=== PATIENT | male | born 1940 | race Caucasian/White ===

== ENCOUNTER 2017-07-20 15:28 | Emergency (ER) | payer MEDICARE, OTHER ==
--- NOTE | 2017-07-20 16:02 | ER Document Report ---
ED Medical Screen (RME) - General Chief Complaint: Chest Pain Stated Complaint: CHEST PAIN Time Seen by Provider: 07/20/17 16:01 Notes: Patient states she has had chest pain on the left for about 3 days. States she has not had any other real significant symptoms. He does take an aspirin per day. Denies any type of cardiac problems in the past. He has not had any have a previous cardiac evaluation. EKG shows a left bundle branch block. An old EKG cannot be located. - Related Data Allergies/Adverse Reactions: No Known Allergies Allergy (Verified 07/20/17 15:29) Past Medical History - Social History Chew tobacco use (# tins/day): No Frequency of alcohol use: Occasional Drug Abuse: None - Past Medical History Cardiac Medical History: Reports: Hx Hypercholesterolemia, Hx Hypertension Renal/ Medical History: Reports: Hx Kidney Stones. Denies: Hx Peritoneal Dialysis Past Surgical History: Reports: Hx Tonsillectomy, Hx Vascular Surgery - Right Carotid Artery - Immunizations Hx Diphtheria, Pertussis, Tetanus Vaccination: Yes Physical Exam - Vital signs Vitals: Temp Pulse Resp BP Pulse Ox 97.8 F 54 L 16 152/84 H 98 07/20/17 15:42 07/20/17 15:42 07/20/17 15:42 07/20/17 15:42 07/20/17 15:42 Course - Vital Signs Vital signs: Temp Pulse Resp BP Pulse Ox 97.8 F 54 L 16 152/84 H 98 07/20/17 15:42 07/20/17 15:42 07/20/17 15:42 07/20/17 15:42 07/20/17 15:42 Doctor's Discharge - Discharge Referrals: KAREEM CONNOR MD [Primary Care Provider] - Follow up as needed
[2017-07-20 16:55] LABS: ABSOLUTE EOSINOPHILS # (AUTO) 0.2 10^3/uL (0.0-0.6); ABSOLUTE LYMPHOCYTES (AUTO) 1.6 10^3/uL (0.5-4.7); ABSOLUTE MONOCYTES (AUTO) 0.5 10^3/uL (0.1-1.4); ABSOLUTE NEUT (AUTO) 3.5 10^3/uL (1.7-8.2); BASOPHILS % (AUTO) 0.6 % (0-2); EOSINOPHILS % (AUTO) 3.9 % (0-6); HEMATOCRIT 43.1 % (37.9-51.0); LYMPHOCYTES % (AUTO) 27.2 % (13-45); MEAN CORPUSCULAR HEMOGLOBIN 31.4 pg (27.0-33.4); MEAN CORPUSCULAR HGB CONC 34.8 g/dL (32.0-36.0); MEAN CORPUSCULAR VOLUME 90 fl (80-97); MONOCYTES % (AUTO) 9.1 % (3-13); PLATELET COUNT 221 10^3/uL (150-450); RED BLOOD COUNT 4.77 10^6/uL (4.35-5.55); RED CELL DISTRIBUTION WIDTH 13.2 % (11.5-14.0); SEGMENTED NEUTROPHILS % (AUTO) 59.2 % (42-78); TOTAL CELLS COUNTED % (AUTO) 100 %
[2017-07-20 17:04] LABS: ALANINE AMINOTRANSFERASE 33 U/L (21-72); ALBUMIN 4.1 g/dL (3.5-5.0); ALKALINE PHOSPHATASE 79 U/L (38-126); ANION GAP 9 (5-19); ASPARTATE AMINO TRANSFERASE 23 U/L (17-59); BILIRUBIN,DIRECT 0.2 mg/dL (0.0-0.4); BILIRUBIN,TOTAL 0.8 mg/dL (0.2-1.3); BLOOD UREA NITROGEN 23 mg/dL (7-20); CALCIUM 9.8 mg/dL (8.4-10.2); CARBON DIOXIDE 29 mmol/L (22-30); CHLORIDE 105 mmol/L (98-107); GLUCOSE 91 mg/dL (75-110); POTASSIUM 4.6 mmol/L (3.6-5.0); SODIUM 142.5 mmol/L (137-145); TOTAL PROTEIN 6.4 g/dL (6.3-8.2)
--- NOTE | 2017-07-20 17:55 | ER Document Report ---
ED Cardiac - General Chief Complaint: Chest Pain Stated Complaint: CHEST PAIN Time Seen by Provider: 07/20/17 16:01 Mode of Arrival: Ambulatory Notes: Patient states that he has had chest pain for about 3 days. Hurts when he takes a big deep breath and when he moves. Hurts on the left sternal border. Denies any shortness of breath. No previous history of blood clots or DVTs. No previous history of heart problems. Did have carotid endarterectomy approximately 4 years ago. Movement makes it worse. Deep breaths make it worse. Sharp. Only lasts for a few seconds and goes away. Patient was concerned that it could be his heart so decided to come in. Has any nausea, vomiting. No other symptoms. Denies abdominal pain. - HPI Patient complains to provider of: Chest pain - Related Data Allergies/Adverse Reactions: No Known Allergies Allergy (Verified 07/20/17 15:29) Past Medical History - Social History Smoking Status: Never Smoker Chew tobacco use (# tins/day): No Frequency of alcohol use: Occasional Drug Abuse: None Lives with: Family Family History: Reviewed & Not Pertinent Patient has suicidal ideation: No Patient has homicidal ideation: No - Past Medical History Cardiac Medical History: Reports: Hx Hypercholesterolemia, Hx Hypertension Renal/ Medical History: Reports: Hx Kidney Stones. Denies: Hx Peritoneal Dialysis Past Surgical History: Reports: Hx Tonsillectomy, Hx Vascular Surgery - Right Carotid Artery - Immunizations Hx Diphtheria, Pertussis, Tetanus Vaccination: Yes Review of Systems - Review of Systems Constitutional: No symptoms reported EENT: No symptoms reported Cardiovascular: No symptoms reported, See HPI, Chest pain Respiratory: No symptoms reported Gastrointestinal: No symptoms reported Genitourinary: No symptoms reported Male Genitourinary: No symptoms reported Musculoskeletal: No symptoms reported Skin: No symptoms reported Hematologic/Lymphatic: No symptoms reported Neurological/Psychological: No symptoms reported Physical Exam - Vital signs Vitals: Temp Pulse Resp BP Pulse Ox 97.8 F 54 L 16 152/84 H 98 07/20/17 15:42 07/20/17 15:42 07/20/17 15:42 07/20/17 15:42 07/20/17 15:42 Interpretation: Normal - General General appearance: Appears well, Alert - HEENT Head: Normocephalic, Atraumatic Eyes: Normal Pupils: PERRL - Respiratory Respiratory status: No respiratory distress Chest status: Nontender Breath sounds: Normal Chest palpation: Normal - Cardiovascular Rhythm: Regular Heart sounds: Normal auscultation Murmur: No Notes: tenderness to palpation of the left costochondral margin at the left sternal border - Abdominal Inspection: Normal Distension: No distension Bowel sounds: Normal Tenderness: Nontender Organomegaly: No organomegaly - Back Back: Normal, Nontender - Extremities General upper extremity: Normal inspection, Nontender, Normal color, Normal ROM , Normal temperature General lower extremity: Normal inspection, Nontender, Normal color, Normal ROM , Normal temperature, Normal weight bearing. No: Edema, Eugene's sign - Neurological Neuro grossly intact: Yes Cognition: Normal Orientation: AAOx4 Garrett Coma Scale Eye Opening: Spontaneous Garrett Coma Scale Verbal: Oriented Marguerite Coma Scale Motor: Obeys Commands Garrett Coma Scale Total: 15 Speech: Normal Motor strength normal: LUE, RUE, LLE, RLE Sensory: Normal - Psychological Associated symptoms: Normal affect, Normal mood - Skin Skin Temperature: Warm Skin Moisture: Dry Skin Color: Normal Course - Re-evaluation Re-evalutation: 07/20/17 20:20 Patient with normal labs. Normal chest x-ray. Reproducible chest wall tenderness. Patient does have a left bundle branch block and unable to find old EKG. With that being said I told patient he needs to be admitted to the hospital for further evaluation. Patient states that he now remembers why he hurts. States that he played pickle ball for the last 3 days and thinks that maybe he strained a muscle in his chest. I advised him that there is no weighted determine 100% whether or not he is having a myocardial issues without doing a stress test especially in light of this abnormal EKG. States that he thinks that his regular doctor has an old EKG. He wants to follow-up with his regular doctor. I am asking patient to sign out AGAINST MEDICAL ADVICE at this time. Patient is of clear mind with a normal mental status exam. Patient also realizes that if symptoms get worse he should come back. Will DC at this time. Advised him to take some anti-inflammatories over the next couple of days to see if this would help his symptoms and to follow-up with his doctor tomorrow. - Vital Signs Vital signs: Temp Pulse Resp BP Pulse Ox 97.8 F 54 L 16 152/84 H 98 07/20/17 15:42 07/20/17 15:42 07/20/17 15:42 07/20/17 15:42 07/20/17 15:42 - Laboratory Result Diagrams: 07/20/17 16:31 07/20/17 16:31 Laboratory results interpreted by me: 07/20/17 07/20/17 16:31 18:58 BUN 23 H Urine Ascorbic Acid 40 H - EKG Interpretation by Me EKG shows normal: ST-T Waves [place]/QRS: Left axis deviation, LBBB Discharge - Discharge Clinical Impression: Chest pain Qualifiers: Chest pain type: unspecified Qualified Code(s): R07.9 - Chest pain, unspecified Disposition: HOME, SELF-CARE Instructions: Chest Pain of Unclear Cause ([facility]) Referrals: KAREEM CONNOR MD [Primary Care Provider] - 07/21/17
--- NOTE | 2017-07-20 18:43 | RADIOLOGY REPORT (SQ) ---
EXAM DESCRIPTION: CHEST PA/LAT COMPLETED DATE/TIME: 07/20/2017 6:22 pm REASON FOR STUDY: chest pain COMPARISON: None. EXAM PARAMETERS: NUMBER OF VIEWS: two views TECHNIQUE: Digital Frontal and Lateral radiographic views of the chest acquired. RADIATION DOSE: NA LIMITATIONS: none FINDINGS: LUNGS AND PLEURA: There is mild hyperexpansion of the lungs. There is no infiltrate or ef fusion. No mass is seen. MEDIASTINUM AND HILAR STRUCTURES: No masses or contour abnormalities. HEART AND VASCULAR STRUCTURES: Heart normal size. No evidence for failure. BONES: No acute findings. HARDWARE: None in the chest. OTHER: No other significant finding. IMPRESSION: Chronic lung changes with no acute cardiopulmonary disease. TECHNICAL DOCUMENTATION: JOB ID: [id number] [employer]- All Rights Reserved Reading location - IP/workstation name: [email or web address]
[2017-07-20 19:29] LABS: APPEARANCE,URINE CLEAR; BILIRUBIN,URINE NEGATIVE (NEGATIVE); COLOR,URINE YELLOW; GLUCOSE, URINE NEGATIVE (NEGATIVE); KETONES,URINE NEGATIVE (NEGATIVE); LEUKOCYTE ESTERASE,URINE NEGATIVE (NEGATIVE); NITRITE,URINE NEGATIVE (NEGATIVE); PROTEIN,URINE NEGATIVE (NEGATIVE); URINE SPECIFIC GRAVITY 1.017; UROBILINOGEN,URINE NEGATIVE mg/dL (<2.0)
[2017-07-20 20:36] VITALS: BP 162/62
--- NOTE | 2017-07-20 22:12 | EKG REPORT ---
SEVERITY:- ABNORMAL ECG - SINUS RHYTHM LEFT BUNDLE BRANCH BLOCK : Confirmed by: Conrad Pendleton 20-Jul-2017 22:11:08
== END 2017-07-20 20:40 | disposition left against medical advice (07) ==
LOC: ER 15:28
DX: R07.9 Chest pain, unspecified (principal)
CPT/HCPCS: 36415; 71046; 80053; 81001; 84484; 85025; 93005; 93010; 99285

== ENCOUNTER 2018-11-07 15:00 | Emergency (ER) | payer MEDICARE ==
[2018-11-07] MEDS ORDERED: ASPIRIN 81 MG TABLET, CHEWABLE PO ONE (15:28)
--- NOTE | 2018-11-07 15:29 | ER Document Report ---
ED Medical Screen (RME) - General Chief Complaint: Shortness Of Breath Stated Complaint: SHORTNESS OF BREATH Time Seen by Provider: 11/07/18 15:27 Primary Care Provider: KAREEM CONNOR MD [Primary Care Provider] - Follow up as needed Mode of Arrival: Ambulatory Information source: Patient Notes: Patient presents complaining of chest pain with shortness of breath for the past week. Patient states that he has had exertional dyspnea that has worsened recently which prompted his visit. Patient states he had a cough for several weeks although the cough over the past few days to seem to have resolved. Patient does have a history of hypertension and dyslipidemia. I have greeted and performed a rapid initial assessment of this patient. A comprehensive ED assessment and evaluation of the patient, analysis of test results and completion of the medical decision making process will be conducted by additional ED providers. TRAVEL OUTSIDE OF THE [place] IN LAST 30 DAYS: No - Related Data Allergies/Adverse Reactions: No Known Allergies Allergy (Verified 11/07/18 15:02) Past Medical History - Past Medical History Cardiac Medical History: Reports: Hx Hypercholesterolemia, Hx Hypertension Renal/ Medical History: Reports: Hx Kidney Stones. Denies: Hx Peritoneal Dialysis Past Surgical History: Reports: Hx Tonsillectomy, Hx Vascular Surgery - Right Carotid Artery - Immunizations Hx Diphtheria, Pertussis, Tetanus Vaccination: Yes Physical Exam - Vital signs Vitals: Temp Pulse Resp BP Pulse Ox 98 F 67 16 146/56 H 96 11/07/18 15:14 11/07/18 15:14 11/07/18 15:14 11/07/18 15:14 11/07/18 15:14 - Respiratory Respiratory status: No respiratory distress Chest status: Nontender Breath sounds: Normal Chest palpation: Normal Course - Vital Signs Vital signs: Temp Pulse Resp BP Pulse Ox 98 F 67 16 146/56 H 96 11/07/18 15:14 11/07/18 15:14 11/07/18 15:14 11/07/18 15:14 11/07/18 15:14 Doctor's Discharge - Discharge Referrals: KAREEM CONNOR MD [Primary Care Provider] - Follow up as needed
--- NOTE | 2018-11-07 15:34 | RADIOLOGY REPORT (SQ) ---
EXAM DESCRIPTION: CHEST 2 VIEWS COMPLETED DATE/TIME: 11/07/2018 3:19 pm REASON FOR STUDY: CP COMPARISON: 09/11/2018 TECHNIQUE: Frontal and lateral radiographic views of the chest acquired. NUMBER OF VIEWS: Two view. LIMITATIONS: None. FINDINGS: LUNGS AND PLEURA: No pneumothorax. Similar postsurgical changes in the right lung base. No consolidation or pleural effusion. MEDIASTINUM AND HILAR STRUCTURES: Stable. HEART AND VASCULAR STRUCTURES: Stable. BONES: No acute findings. HARDWARE: None in the chest. OTHER: No other significant finding. IMPRESSION: NO ACUTE FINDINGS. TECHNICAL DOCUMENTATION: JOB ID: [id number] [place]-72 2010 [employer]- All Rights Reserved Reading location - IP/workstation name: [email or web address]
[2018-11-07 15:54] LABS: ABSOLUTE EOSINOPHILS # (AUTO) 0.2 10^3/uL (0.0-0.6); ABSOLUTE LYMPHOCYTES (AUTO) 1.5 10^3/uL (0.5-4.7); ABSOLUTE MONOCYTES (AUTO) 0.6 10^3/uL (0.1-1.4); ABSOLUTE NEUT (AUTO) 4.1 10^3/uL (1.7-8.2); BASOPHILS % (AUTO) 0.6 % (0-2); EOSINOPHILS % (AUTO) 3.3 % (0-6); MEAN CORPUSCULAR HEMOGLOBIN 30.7 pg (27.0-33.4); MEAN CORPUSCULAR HGB CONC 34.2 g/dL (32.0-36.0); MEAN CORPUSCULAR VOLUME 90 fl (80-97); MONOCYTES % (AUTO) 8.9 % (3-13); PLATELET COUNT 213 10^3/uL (150-450); RED BLOOD COUNT 4.56 10^6/uL (4.35-5.55); RED CELL DISTRIBUTION WIDTH 13.8 % (11.5-14.0); SEGMENTED NEUTROPHILS % (AUTO) 64.2 % (42-78); TOTAL CELLS COUNTED % (AUTO) 100 %; WHITE BLOOD COUNT 6.4 10^3/uL (4.0-10.5)
[2018-11-07 15:57] LABS: INTERNATIONAL RATION (INR) 1.01; PROTHROMBIN TIME 13.4 SEC (11.4-15.4)
[2018-11-07 16:12] LABS: ALANINE AMINOTRANSFERASE 27 U/L (21-72); ALBUMIN 4.1 g/dL (3.5-5.0); ALKALINE PHOSPHATASE 83 U/L (38-126); ANION GAP 6 (5-19); ASPARTATE AMINO TRANSFERASE 27 U/L (17-59); BILIRUBIN,DIRECT 0.2 mg/dL (0.0-0.4); BILIRUBIN,TOTAL 1.1 mg/dL (0.2-1.3); BLOOD UREA NITROGEN 23 mg/dL (7-20); CALCIUM 9.6 mg/dL (8.4-10.2); CARBON DIOXIDE 32 mmol/L (22-30); CHLORIDE 104 mmol/L (98-107); CREATINE KINASE 104 U/L (55-170); GLUCOSE 89 mg/dL (75-110); POTASSIUM 4.2 mmol/L (3.6-5.0); SODIUM 142.4 mmol/L (137-145); TOTAL PROTEIN 6.3 g/dL (6.3-8.2)
[2018-11-07 16:24] LABS: CREATINE KINASE MB 2.3 ng/mL (<4.55); TROPONIN I 0.033 ng/mL
--- NOTE | 2018-11-07 18:34 | ER Document Report ---
ED General - General Chief Complaint: Shortness Of Breath Stated Complaint: SHORTNESS OF BREATH Time Seen by Provider: 11/07/18 15:27 Primary Care Provider: KAREEM CONNOR MD [Primary Care Provider] - Follow up as needed Mode of Arrival: Ambulatory Information source: Patient Notes: Patient is a 77 year old male presenting with complaints of left sided chest pa in and shortness of breath with exertion. Patient reports this has been going on for several months with worsening over the last few days. Patient reports that the chest pain starts at the onset of the SOB and feels like a sharp and squeezing pain. Patient states he was seen by a medical technologist microbiology at [facility] but cannot remember his name about 6 months ago. He states that he has a RBBB and a LBBB and they discussed eventually needing a pacemaker. Patient denies any nausea or radiation of the pain. His last episode of chest pain was this morning and he is symptom free at this time. TRAVEL OUTSIDE OF THE [place] IN LAST 30 DAYS: No - Related Data Allergies/Adverse Reactions: No Known Allergies Allergy (Verified 11/07/18 15:02) Past Medical History - General Information source: Patient - Social History Smoking Status: Never Smoker Chew tobacco use (# tins/day): No Frequency of alcohol use: None Drug Abuse: None Family History: Reviewed & Not Pertinent Patient has suicidal ideation: No Patient has homicidal ideation: No - Past Medical History Cardiac Medical History: Reports: Hx Hypercholesterolemia, Hx Hypertension Renal/ Medical History: Reports: Hx Kidney Stones. Denies: Hx Peritoneal Dialysis Past Surgical History: Reports: Hx Tonsillectomy, Hx Vascular Surgery - Right Carotid Artery - Immunizations Hx Diphtheria, Pertussis, Tetanus Vaccination: Yes Review of Systems - Review of Systems Constitutional: No symptoms reported EENT: No symptoms reported Cardiovascular: Chest pain, Dyspnea Respiratory: Short of breath Gastrointestinal: No symptoms reported Genitourinary: No symptoms reported Male Genitourinary: No symptoms reported Musculoskeletal: No symptoms reported Skin: No symptoms reported Hematologic/Lymphatic: No symptoms reported Neurological/Psychological: No symptoms reported Physical Exam - Vital signs Vitals: Temp Pulse Resp BP Pulse Ox 98 F 67 16 146/56 H 96 11/07/18 15:14 11/07/18 15:14 11/07/18 15:14 11/07/18 15:14 11/07/18 15:14 - Notes Notes: PHYSICAL EXAMINATION: GENERAL: Well-appearing, well-nourished and in no acute distress. HEAD: Atraumatic, normocephalic. EYES: Pupils equal round and reactive to light, extraocular movements intact, sclera anicteric, conjunctiva are normal. ENT: Nares patent, oropharynx clear without exudates. Moist mucous membranes. NECK: Normal range of motion, supple without lymphadenopathy LUNGS: Breath sounds clear to auscultation bilaterally and equal. No wheezes rales or rhonchi. HEART: Regular rate and rhythm without murmurs ABDOMEN: Soft, nontender, nondistended abdomen. No guarding, no rebound. No masses appreciated. Musculoskeletal: Normal range of motion, no pitting or edema. No cyanosis. NEUROLOGICAL: Cranial nerves grossly intact. Normal speech, normal gait. Normal sensory, motor exams PSYCH: Normal mood, normal affect. SKIN: Warm, Dry, normal turgor, no rashes or lesions noted. Course - Re-evaluation Re-evalutation: Patient appears well, EKG unchanged from previous on file. Chest xray unremarkable. Consulted with Dr. Bowman, cardiology regarding this patient. His recommendation is to have patient follow-up with his primary care provider if CTA is negative. Currently awaiting second troponin. First trop was 0.033. All other labs unremarkable. Called and spoke with Dr. Pelayo again regarding patient's troponin of 0.037 And results of CTA which was negative. He is okay with patient following up outpatient with primary care as well as his medical technologist microbiology with [facility]. He did recommend patient starting on amlodipine, I will place him on a low-dose of 2.5 mg daily. All of this was discussed with patient and family member and they are in agreeance with plan. ED return precautions discussed. - Vital Signs Vital signs: Temp Pulse Resp BP Pulse Ox 98.7 F 67 16 118/68 98 11/07/18 20:00 11/07/18 15:14 11/07/18 20:00 11/07/18 20:00 11/07/18 20:00 - Laboratory Result Diagrams: 11/07/18 15:38 11/07/18 15:38 Laboratory results interpreted by me: 11/07/18 11/07/18 15:38 15:38 Carbon Dioxide 32 H BUN 23 H NT-Pro-B Natriuret Pep 1180 H - EKG Interpretation by Me EKG shows normal: Sinus rhythm Rate: Normal Rhythm: NSR [place]/QRS: RBBB When compared to previous EKG there are: No significant change Discharge - Discharge Clinical Impression: Shortness of breath on exertion, Chest pain Condition: Stable Disposition: HOME, SELF-CARE Additional Instructions: You were seen today for chest pain and shortness of breath on exertion. The exact cause of your pain is unclear. However, based on your cardiac enzyme testing, chest x-ray, and EKG it does not appear that it is from an immediately life-threatening cause at this time. Although your testing here is normal is critical that you follow-up with your primary care physician for continued e valuation of this chest pain and possible stress testing. I recommended you see your physician within the next 24-48 hours to be evaluated for consideration of a stress test. Please return to emergency department immediately if you have worsening of your chest pain, shortness of breath, vomiting, become unable to exert yourself due to pain or difficulty breathing, you pass out, or have any pain that radiates into your arms, jaw, or back. Please also return if you have any additional symptoms that are concerning to you. Please call Dr. Connor first thing in the morning so that he can get you back in touch with your medical technologist microbiology. This is very important. I have enclosed a copy of all of your lab work from today as well as a copy of your CT report. Please return to the emergency department for any new or worsening symptoms to include difficulty breathing, shortness of breath or worsening chest pain. Prescriptions: RX: Amlodipine Besylate [Norvasc 2.5 mg Tablet] 2.5 mg PO DAILY #30 tablet Referrals: KAREEM CONNOR MD [Primary Care Provider] - Follow up as needed
--- NOTE | 2018-11-07 19:40 | RADIOLOGY REPORT (SQ) ---
EXAM DESCRIPTION: CTA CHEST COMPLETED DATE/TIME: 11/07/2018 7:23 pm REASON FOR STUDY: shortness of breath, chest pain COMPARISON: None. TECHNIQUE: CT scan of the chest performed using helical scanning technique with dynamic intravenous contrast injection. Images reviewed with lung, soft tissue and bone windows. Reconstructed coronal and sagittal MPR images reviewed. Additional 3 dimensional post-processing performed to develop Maximal Intensity Projection images (LA P). All images stored on PACS. All CT scanners at this facility use dose modulation, iterative reconstruction, and/or weight based d osing when appropriate to reduce radiation dose to as low as reasonably achievable (ALARA). [facility]: Dose Right [facility]: CareDose [facility]: Dose Right [facility]: Teradose 4D [facility]: Oxane Materials CONTRAST TYPE AND DOSE: contrast/concentration: Isovue 350.00 mg/ml; Total Contrast Delivered: 74.0 ml; Total Saline Delivered: 80.0 ml Contrast bolus optimized for the pulmonary arteries. Not diagnostic for the aorta. RENAL FUNCTION: BUN 23 creatinine 0.83 RADIATION DOSE: CT Rad equipment meets quality standard of care and radiation dose reduction techniq ues were employed. CTDIvol: 14.3 - 39.7 mGy. DLP: 597 mGy-cm. . LIMITATIONS: None. FINDINGS: LUNGS AND PLEURA: There is a stellate area in the right upper lobe seen best on image 40. There is no identifiable central mass. There is mild pleural/ parenchymal scarring in the right low er lobe. There is radiopaque suture in the right lower lobe. AORTA AND GREAT VESSELS: No aneurysm. Contrast bolus not optimized for the aorta. HEART: No pericardial effusion. No significant coronary artery calcifications. PULMONARY ARTERIES: No emboli visualized in the main pulmonary arteries or the segmental branches. HILAR AND MEDIASTINAL STRUCTURES: No identified masses or abnormal nodes. HARDWARE: None in the chest. UPPER ABDOMEN: No significant findings. Limited exam. THYROID AND OTHER SOFT TISSUES: No masses. No adenopathy. BONES: No acute or significant finding. 3D MIPS: Confirm above findings. OTHER: No other significant finding. IMPRESSION: There is no evidence of pulmonary emboli. There is no evidence of aortic aneurysm. The re is scarring in the right lower lobe with surgical changes. There is an area of presumed scarring in the right upper lobe. Consider three-month follow-up CT. COMMENT: Quality ID # [id number]: Final reports with documentation of one or more dose reduction techniques (e.g., Automated exposure control, adjustment of the mA and/or kV according to patient size, use of iterative reconstruction technique) TECHNICAL DOCUMENTATION: JOB ID: [id number] [employer]- All Rights Reserved Reading location - IP/workstation name: [email or web address]
[2018-11-07 20:03] VITALS: BP 118/68
--- NOTE | 2018-11-07 20:34 | EKG REPORT ---
SEVERITY:- ABNORMAL ECG - SINUS RHYTHM LEFT BUNDLE BRANCH BLOCK : Confirmed by: Conrad Pendleton 07-Nov-2018 20:33:12
== END 2018-11-07 20:14 | disposition home or self-care (01) ==
LOC: ER 15:00
DX: R06.02 Shortness of breath (principal); R07.9 Chest pain, unspecified; I45.10 Unspecified right bundle-branch block; I10 Essential (primary) hypertension
CPT/HCPCS: 93005; 99285; 36415; 82553; 82550; 85025; 85610; 80053; 84484; 83880; 71046; 71275; 93010; A9270